=== PATIENT | male | born 1950 | race Caucasian/White ===

== ENCOUNTER → 2017-03-12 | Outpatient (CLI) | payer MEDICARE, OTHER ==
[~2017-03-12] MED LIST: ASPIRIN 81MG TA81 MG PO; LISINOPRIL/HCTZ1 TA3 PO; LOVASTATIN20 MG PO; NEXIUM40 MG PO
--- NOTE | 2017-03-12 17:30 | RADIOLOGY REPORT PS360 ---
HIP LT 2-3V W/PELVIS IF PERFOR HISTORY: LEFT HIP PAIN ORDERING PHYSICIAN: Aundrea JANE PATIENT AGE: 67 years COMPARISON: None FINDINGS: There are mild osteoarthritic changes of the left hip. Subchondral lucency is noted at the lateral aspect of the acetabulum consistent with a subarticular cyst. No fracture or dislocation. No lytic or blastic change. 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
--- NOTE | 2017-03-15 13:51 | RADIOLOGY REPORT PS360 ---
LUMBAR SPINE 5 VIEWS COMPARISON: None HISTORY: The tip pain TECHNIQUE: AP lateral and oblique views and spot view lumbosacral junction FINDINGS: There is straightening of normal curvature. 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 There is mild disc space narrowing at L4-5 level. An there is minor osteophytic spurring at the L5-S1 level. There is no acute compression fracture. There is no pars defect. The SI joints are normal. IMPRESSION: Findings of muscle spasm along with focal degenerative and posttraumatic changes at the L1-2 and L2-3 levels
== END ==
LOC: RAD 16:06
DX: M25.552 Pain in left hip (principal); M54.42 Lumbago with sciatica, left side